=== PATIENT | male | born 1970 | race African-American/Black ===

== ENCOUNTER 2021-05-08 09:06 | Inpatient (IN) | payer MEDICAID, SELFPAY ==
[~2021-05-08] VITALS: Ht 175.3 cm; Wt 74.8 kg
[2021-05-08 09:15] VITALS: BP 151/84
--- NOTE | 2021-05-08 09:20 | NUR ---
Christie peter in [facility] - 05/08/21 at 0924 by MEDMARIUMR pt wheelchair assist to bed 10
[2021-05-08] MEDS ORDERED: MORPHINE SULFATE 4 MG/ML SYR IVP ONE (09:50)
[2021-05-08] MEDS ORDERED: ONDANSETRON 4 MG/2 ML VIAL IVP ONE (09:50)
[2021-05-08] MEDS ORDERED: NACL 0.9% 2,000 ML IV ONE (09:50)
--- NOTE | 2021-05-08 10:02 | NUR ---
PT TAKEN TO XRAY VIA W/C
--- NOTE | 2021-05-08 10:06 | NUR ---
PT RETURNED FROM XRAY
--- NOTE | 2021-05-08 10:31 | NUR ---
LAB AT BEDSIDE
[2021-05-08 11:10] LABS: BASOPHILS % (AUTO) 0.2 % (0.0-2.0); EOSINOPHILS % (AUTO) 0.6 % (0.0-4.0); HEMATOCRIT 48.8 % (36-52); HEMOGLOBIN 16.2 g/dL (12.0-18.0); LYMPHOCYTES # (AUTO) 0.8 K/uL (2.0-11.5); LYMPHOCYTES % (AUTO) 8.7 % (20.5-51.1); MEAN CORPUSCULAR HEMOGLOBIN 28 pg (27-31); MEAN CORPUSCULAR HGB CONC 33 g/dL (33-37); MEAN CORPUSCULAR VOLUME 83.5 fL (80-94); MONOCYTES # (AUTO) 0.6 K/uL (0.8-1.0); MONOCYTES % (AUTO) 6.6 % (1.7-9.3); NEUTROPHILS # (AUTO) 7.4 K/uL (1.8-7.7); NEUTROPHILS % (AUTO) 83.9 % (42.2-75.2); PLATELET COUNT (AUTO) 222 K/uL (140-450); RED BLOOD CELL COUNT(AUTO) 5.85 MIL/uL (4.20-6.10); RED CELL DISTRIBUTION WIDTH 13.4 % (11.6-13.7); WHITE BLOOD COUNT (AUTO) 8.8 K/uL (4.8-10.8)
[2021-05-08 11:25] LABS: ALBUMIN 3.8 g/dL (3.4-5.0); ANION GAP 11.5 (8-16); CARBON DIOXIDE 30.1 mmol/L (21-32); POTASSIUM 3.6 mmol/L (3.5-5.1); TOTAL BILIRUBIN 0.5 mg/dL (0.0-1.0)
[2021-05-08 11:47] LABS: ACETONE, SERUM NEGATIVE (NEGATIVE)
[2021-05-08 11:55] LABS: MAGNESIUM 1.8 mg/dL (1.8-2.4); PHOSPHORUS 2.1 mg/dL (2.5-4.9)
[2021-05-08] MEDS ORDERED: MORPHINE SULFATE 10 MG/ML VIAL IVP ONE (12:20)
--- NOTE | 2021-05-08 12:44 | NUR ---
CT scan with contrast consent signed and in chart.
--- NOTE | 2021-05-08 12:47 | NUR ---
51 year old male c/o abdominal pain, cramping 10/ started this morning. Denies diarrhea and constipation. N/V. medhx: DM 2 NKA
--- NOTE | 2021-05-08 12:56 | NUR ---
PT taken to CT scan via alice
--- NOTE | 2021-05-08 13:10 | NUR ---
PT RETURNED FROM CT
[2021-05-08 13:17] LABS: APPEARANCE,URINE CLEAR (CLEAR); BILIRUBIN,URINE NEGATIVE (NEGATIVE); BLOOD, URINE NEGATIVE (NEGATIVE); COLOR,URINE YELLOW (YELLOW); LEUKOCYTE ESTERASE ,URINE NEGATIVE (NEGATIVE); NITRITE, URINE NEGATIVE (NEGATIVE); UGLUCOSE 3+ (NEGATIVE)
[2021-05-08 13:44] LABS: RBC,URINE 0-5 /HPF (0-5); WBC,URINE 0-5 /HPF (0-5)
--- NOTE | 2021-05-08 13:51 | NUR ---
Patient has eyes closed in bed. Vital Signs within normal limits. Respirations even and unlabored. Chest rise is equal and symmetrical. Will continue to monitor.
--- NOTE | 2021-05-08 14:09 | NUR ---
SILVIANO LEDEZMA WALKED TO LAB.
--- NOTE | 2021-05-08 15:37 | NUR ---
RECEIVED CALL FROM DEJA MORRIS'S SIGNIFICANT OTHER. UPDATED ON PT STATUS. ALL QUESTIONS AND CONCERNS ANSWERED AT THIS TIME
--- NOTE | 2021-05-08 16:30 | NUR ---
Patient has eyes closed, resting in bed. Vital Signs within normal limits. Respirations even and unlabored. Chest rise is symmetrical. Will continue to monitor.
[2021-05-08] MEDS: NACL 0.9% 1,000 ML IV SCH ×2 (17:57→23:23)
--- NOTE | 2021-05-08 18:59 | NUR ---
Patient asking for food. Was educated on NPO status
[2021-05-08] MEDS: MORPHINE SULFATE 2 MG/ML SYR IVP PRN (19:00)
--- NOTE | 2021-05-08 19:15 | NUR ---
RECIEVED REPORT FROM PATIENCE ROME AND PRECEPTEE TO ASSUME CARE OF PT.
--- NOTE | 2021-05-08 19:25 | NUR ---
RN TO PT ROOM. PT LYING IN BED WITH EYES CLOSED, EQUAL RISE AND FALL OF CHEST. NO ACUTE DISTRESS AT THIS TIME. ALL VS ARE STABLE WILL CONTINUE TO MONITOR PT.
--- NOTE | 2021-05-08 19:29 | NUR ---
Pt report given to Denisha MORIN. Transfer of care at this time.
--- NOTE | 2021-05-08 22:19 | NUR ---
Patient will be admitted to care of [facility]. Admited to [facility]. Will go to room 106B. Belongings list completed. Report to PATIENCE STALLINGS.
--- NOTE | 2021-05-08 23:20 | NUR ---
ADMITTED THIS 51 YEAR OLD MALE FROM ER VIA [facility] WITH CC OF ABDOMINAL PAIN WITH N/V, AAOX4, 8/10 ABDOMINAL PAIN BUT NO N/V AT THIS TIME, WILL MEDICATE PRN, PT REQUESTING FOR FOOD, MADE AWARE OF NPO STATUS AT THIS TIME, SAFETY MEASURES IN PLACE, CALL LIGHT WITHIN REACH.
[2021-05-08] MEDS ORDERED: ONDANSETRON 4 MG/2 ML VIAL IVP PRN (23:30)
[2021-05-08] MEDS ORDERED: DEXTROSE 50% 50 ML SYR IVP PRN (23:30)
[2021-05-08 23:40] VITALS: BP 128/84
[2021-05-08] MEDS: MORPHINE SULFATE 4 MG/ML SYR IVP PRN (23:48)
--- NOTE | 2021-05-08 23:50 | NUR ---
MEDICATED PRN FOR PAIN WITH MORPHINE IVP, STARTED ON IVF OF NS AT 150ML/H, PT UPSET OF NPO STATUS, EDUCATE ON REASON FOR NPO STATUS DUE TO HIS DX, ALL QUESTIONS ANSWERED, ALL NEEDS ATTENDED.
[2021-05-09] MEDS: MORPHINE SULFATE 4 MG/ML SYR IVP PRN (03:18)
[2021-05-09 03:50] VITALS: BP 126/65
[2021-05-09] MEDS: NACL 0.9% 1,000 ML IV SCH ×3 (06:26→20:21)
[2021-05-09] MEDS: MORPHINE SULFATE 2 MG/ML SYR IVP PRN ×4 (06:27→20:53)
[2021-05-09] MEDS: BLOOD GLUCOSE MONITORING 1 DEV DEV FS SCH ×4 (06:30→21:01)
--- NOTE | 2021-05-09 07:20 | NUR ---
PT AWAKE, NO SIGNS OF DISTRESS, REPORT GIVEN TO PATIENCE POTTER FOR CONTINUITY OF CARE. Addendum: 05/09/21 at 0740 by Juan Bergman RN REPORT GIVEN TO PATIENCE CHO FOR CONTINUITY OF CARE.
--- NOTE | 2021-05-09 07:22 | NUR ---
RECEIVED REPORT FROM PM SHIFT RN FOR CONTINUITY OF CARE. PT. COMFORTABLY SLEEPING. NO ACUTE DISTRESS NOTED. ALL SAFETY MEASURES IN PLACED. WILL CONTINUE TO MONITOR THE PT.
[2021-05-09 08:00] VITALS: BP 147/87
--- NOTE | 2021-05-09 08:58 | NUR ---
ANSWERED CALL LIGHT. PT. REQUESTING PO DIET. SAID HE IS STARVING. DIDN'T EAT FROM 2 DAYS. PT. WITH NPO ORDER. EXPLAINED HIM RE. 'S ORDER FOR NPO. ALSO SEND MESSAGE TO DR. GUTIERREZ AND ASK HER PT'S CONCERN RE. DIET. RECEIVED MESSAGE BACK WITH RECEIVED ORDER FOR CLEAR LIQUID DIET. ORDER CARRIEDOUT.
--- NOTE | 2021-05-09 09:15 | NUR ---
PATIENT HAS BEEN SCREENED AND CATEGORIZED MODERATE NUTRITION RISK. PATIENT WILL BE SEEN WITHIN 3-5 DAYS OF ADMISSION. 05/11/21-05/13/21 REVIEWED BY [address]E [address]
[2021-05-09] MEDS ORDERED: DOCUSATE SODIUM 100 MG GELCAP PO PRN (09:40)
[2021-05-09] MEDS ORDERED: ONDANSETRON 4 MG/2 ML VIAL IM/IVP PRN (09:40)
[2021-05-09] MEDS ORDERED: LORazepam 2 MG/ML VIAL IM/IVP PRN (09:40)
[2021-05-09] MEDS ORDERED: ZOLPIDEM 5 MG TAB PO PRN (09:40)
[2021-05-09] MEDS ORDERED: MAG SULF 2000 MG/WATER PREMIX 50 ML IV PRN (09:40)
[2021-05-09] MEDS ORDERED: ACETAMINOPHEN 325 MG TAB PO PRN (09:40)
[2021-05-09] MEDS ORDERED: POTASSIUM CHLORIDE 10 MEQ TABER PO PRN (09:40)
--- NOTE | 2021-05-09 11:00 | NUR ---
MADE ROUND TO THE PT'S ROOM. PT. COMFORTABLY RESTING. WITH NO ACUTE DISTRESS NOTED ON ROOM AIR. NO C/O PAIN AT THIS TIME. ALL SAFETY MEASURES IN PLACED. WILL CONTINUE TO MONITOR THE PT.
[2021-05-09] MEDS: INSULIN LISPRO SLIDING SCALE 100 UNITS/ML VIAL SUBQ PRN ×2 (12:25→21:01)
--- NOTE | 2021-05-09 12:28 | NUR ---
ANSWERED CALL LIGHT. PT. C/O PAIN IN ABDOMEN. 08/17. MEDICATED WITH PAIN MED. MORPHIN PRN ORDER. . WILL REASSESS FOR EFFECTIVENESS.PT. STABLE AND BREATHINGS NORMAL. WILL CONTINUE TO MONITOR THE PT.
[2021-05-09 12:34] LABS: PROTHROMBIN TIME 10.1 secs (10.8-13.4)
[2021-05-09 12:48] LABS: CHOL/HDL RATIO 3.5 (1-4.5); THYROID STIMULATING HORMONE 0.78 uIU/mL (0.34-3.74)
--- NOTE | 2021-05-09 13:30 | NUR ---
PT. COMFORTABLY SLEEPING IN THE BED. NO S/S OF PAIN NOTED AT THIS TIME. ALL SAFETY MEASURES IN PLAC=DARREN. WILL CONTINUE TO MONITOR THE PT.
--- NOTE | 2021-05-09 14:46 | NUR ---
ROUNDED TO THE PT'S ROOM. PT. SLEEPING. NO S./S OF PAIN NOTED. NOT IN DISTRESS ON ROOM AIR. ALL SAFETY MEASURES IN PLACED. WILL CONTINUE TO MONITOR THE PT.
[2021-05-09 16:00] VITALS: BP 143/92
--- NOTE | 2021-05-09 17:49 | NUR ---
PT. C/O ABDOMINAL PAIN. MEDICATED WITH PRN PAIN MED MORPHINE. V/S STABLE. NO NOTED DISTRESS. WILL REASSESS FOR PAIN .
--- NOTE | 2021-05-09 18:46 | NUR ---
PT. SLEEPING NO S/S OF PAIN NOTED. ALL SAFETY MEASURES IN PLACED. WILL CONTINUE TO MONITOR THE PT.
--- NOTE | 2021-05-09 19:44 | NUR ---
PT.STABLE REPORT GIVEN TO PM SHIFT RN FOR CONTINUITY OF CARE.
[2021-05-09 20:00] VITALS: BP 148/87
[2021-05-10] MEDS: MORPHINE SULFATE 2 MG/ML SYR IVP PRN ×2 (03:41→09:36)
[2021-05-10] MEDS: NACL 0.9% 1,000 ML IV SCH ×2 (03:44→09:15)
[2021-05-10 04:00] VITALS: BP 135/74
[2021-05-10] MEDS: INSULIN LISPRO SLIDING SCALE 100 UNITS/ML VIAL SUBQ PRN ×2 (06:28→13:03)
[2021-05-10] MEDS: BLOOD GLUCOSE MONITORING 1 DEV DEV FS SCH ×2 (06:51→11:30)
[2021-05-10 07:20] LABS: ANION GAP 10.9 (8-16); CREATININE 0.7 mg/dL (0.6-1.3); POTASSIUM 3.9 mmol/L (3.5-5.1)
[2021-05-10 07:27] LABS: BASOPHILS % (AUTO) 0.6 % (0.0-2.0); EOSINOPHILS % (AUTO) 0.7 % (0.0-4.0); HEMATOCRIT 43.4 % (36-52); HEMOGLOBIN 14.5 g/dL (12.0-18.0); LYMPHOCYTES # (AUTO) 1.2 K/uL (2.0-11.5); LYMPHOCYTES % (AUTO) 18.9 % (20.5-51.1); MEAN CORPUSCULAR HEMOGLOBIN 28 pg (27-31); MEAN CORPUSCULAR HGB CONC 33 g/dL (33-37); MEAN CORPUSCULAR VOLUME 82.8 fL (80-94); MONOCYTES # (AUTO) 0.5 K/uL (0.8-1.0); MONOCYTES % (AUTO) 7.7 % (1.7-9.3); NEUTROPHILS # (AUTO) 4.6 K/uL (1.8-7.7); NEUTROPHILS % (AUTO) 72.1 % (42.2-75.2); PLATELET COUNT (AUTO) 223 K/uL (140-450); RED BLOOD CELL COUNT(AUTO) 5.24 MIL/uL (4.20-6.10); RED CELL DISTRIBUTION WIDTH 13.4 % (11.6-13.7); WHITE BLOOD COUNT (AUTO) 6.4 K/uL (4.8-10.8)
[2021-05-10 07:35] LABS: MAGNESIUM 1.7 mg/dL (1.8-2.4); PHOSPHORUS 3.2 mg/dL (2.5-4.9)
--- NOTE | 2021-05-10 07:35 | NUR ---
PT SLEEPING, NO SIGNS OF DISTRESS, REPORT GIVEN TO PATIENCE GUTIERREZ FOR CONTINUITY OF CARE.
[2021-05-10 08:00] VITALS: BP 131/84
--- NOTE | 2021-05-10 08:00 | NUR ---
RECEIVED REPORT FROM GARNETT ROOM WORKER FOR CONTINUITY OF CARE. PATIENT ALERT AWAKE ORIENTED X4, NOT IN ANY DISTRESS NOTED. WITH IVF ON RIGHT AC GAUGE 20 DRY AND INTACT. DENIES PAIN AT THIS TIME. NEEDS ATTENDED. WILL CONTINUE TO MONITOR.
[2021-05-10] MEDS ORDERED: PANT40EC PO (10:47)
--- NOTE | 2021-05-10 11:14 | NUR ---
WITH DC ORDER, NOTIFIED PATIENT FOR THE PLAN OF CARE. WILL CONTINUE TO MONITOR.
--- NOTE | 2021-05-10 12:00 | NUR ---
ADVANCE DIET TO REGULAR, NO C/O PAIN. TOLERATED WELL. WILL CONTINUE TO MONITOR.
--- NOTE | 2021-05-10 13:38 | NUR ---
DISCHARGE PATIENT TO HOME, WITH DC INSTRUCTION GIVEN AND VERBALIZED UNDERSTANDING. IN STABLE CONDITION.
[2021-05-12] MEDS ORDERED: METF-350 PO (10:21)
== END 2021-05-10 13:46 | disposition home or self-care (01) | DRG 282 ==
LOC: MED 09:06 → MMU 17:23 → MTU 21:53
DX: K85.90 Acute pancreatitis without necrosis or infection, unspecified (principal); E11.00 Type 2 diabetes mellitus with hyperosmolarity without nonketotic hyperglycemic-hyperosmolar coma (NKHHC); E83.39 Other disorders of phosphorus metabolism; E87.1 Hypo-osmolality and hyponatremia; E86.0 Dehydration; E83.42 Hypomagnesemia; E11.65 Type 2 diabetes mellitus with hyperglycemia; F12.90 Cannabis use, unspecified, uncomplicated; Z20.822 Contact with and (suspected) exposure to COVID-19; N28.1 Cyst of kidney, acquired; K42.9 Umbilical hernia without obstruction or gangrene; Z72.0 Tobacco use; Z91.14 Patient's other noncompliance with medication regimen; Z71.6 Tobacco abuse counseling; Z71.51 Drug abuse counseling and surveillance of drug abuser
CPT/HCPCS: 36415; 71045; 76770; 80048; 80053; 81001; 82009; 82150; 82948; 83036; 83690; 83735; 83880; 84100; 84134; 84443; 84484; 85025; 85610; 85730; 87081; 93005; 96361; 96374; 96375; 96376; 99285; J2270; J2405; Q0092; Q9967